=== PATIENT | female | born 2005 | race African-American/Black ===

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

== ENCOUNTER 2024-03-14 13:58 | Emergency (ER) | payer OTHER, SELFPAY ==
--- NOTE | ~2024-03-14 | XR_ITS ---
EXAMINATION: XR ankle LT min 3V DATE: 03/14/2024 14:31 INDICATION: Left ankle pain post injury TECHNIQUE: Anteroposterior, oblique, mortise, and lateral views of the left ankle were obtained. COMPARISON: None. FINDINGS: Alignment is normal. No fracture. Joint spaces are well maintained. No ankle joint effusion. The so ft tissues are unremarkable. IMPRESSION: 1. Normal left ankle radiographs. Reviewed, dictated and finalized at location B. BANDER
--- NOTE | ~2024-03-14 | XR_ITS ---
EXAMINATION: [id number] DATE: 03/14/2024 14:32 INDICATION: Left knee injury and pain. TECHNIQUE: 2 views of left knee were obtained. COMPARISON: None. FINDINGS: Bone alignment is normal. No fracture. Joint spaces are normal. No knee joint effusion. IMPRESSION: 1. Normal left knee. Reviewed, dictated and finalized at location A. IC OPINION SURVEY TAKER IMPRESSION: 1. Normal left knee.
--- NOTE | 2024-03-14 14:00 | ED.GENADULT ---
HPI - General Adult General Chief complaint: Extremity Injury, Lower Stated complaint: Left Leg Pain Time Seen by Provider: 03/14/24 14:08 Source: patient, RN notes reviewed and old records reviewed Mode of arrival: ambulatory Limitations: no limitations History of Present Illness HPI narrative: 18-year-old female presents to the [facility] with left leg pain. Patient reports last night that she injured her leg when she was playing around with brother and he landed in her left lower leg. Pain mostly in the ankle. Decreased range of motion of the ankle in the knee. No erythema, ecchymosis. No swelling noted. Related Data Home Medications Medication Instructions Recorded Confirmed norethindrone 1 mg-ethinyl 1 tablet PO DAILY 12/24/21 03/14/24 estradiol 20 mcg (21)-iron 75 mg (7) tablet (Blisovi Fe 05/20 (28)) albuterol 90 mcg-budesonide 80 2 inh inhalation DIRECTED 03/14/24 03/14/24 mcg/actuation HFA aerosol inhaler (Airsupra) albuterol sulfate 2.5 mg/3 mL 2.5 mg continuous nebulization 03/14/24 03/14/24 (0.083 %) solution for nebulization DIRECTED phentermine 15 mg capsule 15 mg PO DIRECTED 03/14/24 03/14/24 Allergies Allergy/AdvReac Type Severity Reaction Status Date / Time No Known Allergies Allergy Verified 03/14/24 14:01 Review of Systems Review of Systems: All systems reviewed & are unremarkable except as noted in HPI and below Constitutional: Constitutional: Reports no additional constitutional complaints ENT: Reports system reviewed and no additional complaints, except as documented Cardiovascular: Cardiovascular: Reports no additional cardiovascular complaints, Denies chest pain and Denies dyspnea Respiratory: Respiratory: Reports no additional respiratory complaints, Denies chest congestion, Denies cough and Denies dyspnea Gastrointestinal: Gastrointestinal: Reports no additional gastrointestinal complaints, Denies abdominal pain, Denies nausea and Denies vomiting Musculoskeletal: Musculoskeletal: Reports as per HPI and Reports arthralgias (Left knee, left ankle) Integumentary/Breasts: Skin/Breast: Reports system reviewed and no additional complaints, except as docu PMFSH Past Medical History Medical History Asthma Shoulder injury RT Surgical History Surgical History No significant past surgical history Family History Family History Father , [place] Acute myocardial infarction Mother Alive and well Social History Social History Smoking status: Never smoker Tobacco type: cigarettes Second hand tobacco smoke exposure: No Additional smoking assessment comments: Secondhand smoking exposure Alcohol intake: never Substance use: never Living arrangements: with family Occupation/Education: student Gender identity (if verbalized by the patient): Female Comments At the time of my signature, I reviewed and agree with the nursing past medical, surgical, social, and family history. There is no relevant family history pertinent to the patient complaint. Exam Const: General: cooperative, healthy appearing, comfortable, no acute distress, well developed, alert and well nourished Nutritional Appearance: well nourished and obese Orientation/consciousness: patient oriented x3 Limitations: no limitations HENMT: Head: normal to inspection Ears: hearing grossly normal bilaterally and external ears normal Face/Nose/Sinus: Normal external nose present, normal facial exam and face symmetric Face and sinus: normal facial exam and face symmetric Eyes: General: appearance normal, both eyes and all related structures Alignment and Position: alignment normal Periorbital: periorbital findings normal Neck: Neck: normal visual inspection, full ROM, no lymphadenopathy and no meningeal signs Chest: Chest palpation & inspection: normal inspection of the chest Resp: Effort & Inspection: normal respiratory effort and able to speak in complete sentences Cardio: Rate: regular rate Skin: General skin exam: normal color and no rashes or lesions noted Lesions: no lesions Rashes: no rashes Wounds: no wounds Neuro: General: patient oriented x3, tone normal, moves all extremities and no meningeal signs Cognition (Neuro): normal cognition Speech: normal speech Extrem: General: normal to inspection, full ROM and capillary refill normal Left lower extremity: knee Details: abnormal ROM Details: pain with active ROM Details: with extension and with flexion; no tenderness and no swelling, lower leg Details: normal to inspection and no edema; no erythema, no tenderness and no localized swelling and ankle Details: tenderness (Generalized) and abnormal ROM Details: pain with active ROM Details: with plantar flexion and with dorsiflexion; no swelling Psych: Appearance: grossly normal and well kempt Mental Status: mental status grossly normal Speech and movement: Normal speech and movement present and Clear speech present Affect: normal affect Attitude: cooperative Course Course Level of Care: Express Care Visit Vital Signs Vital signs: Vital Signs Temperature 97.7 F 03/14/24 14:08 Pulse Rate 95 03/14/24 14:08 Respiratory Rate 20 03/14/24 14:08 Blood Pressure 122/73 03/14/24 14:08 Pulse Oximetry 97 03/14/24 14:08 Oxygen Delivery Room Air 03/14/24 14:08 Temperature 97.7 F 03/14/24 14:08 Pulse Rate 95 03/14/24 14:08 Respiratory Rate 20 03/14/24 14:08 Blood Pressure 122/73 03/14/24 14:08 Pulse Oximetry 97 03/14/24 14:08 Oxygen Delivery Room Air 03/14/24 14:08 Reviewed Medical Decision Making MDM Narrative Medical decision making narrative: Patient sitting comfortably in exam room. Nontoxic, vitals stable. Patient in no acute distress Patient presents for knee and ankle discomfort after injury last night X-ray does not show any acute findings. Has pain with range of motion of the ankle. Pain only with bending of the knee. Unable to reproduce pain with palpation. Patient appropriate for outpatient treatment and follow-up, Carmine wrap was applied in clinic Discharge instructions reviewed with patient, as well as provided in writing per nursing staff. The instructions also include specific and strict return/GO TO THE ER as well as f/u information. All questions have been answered, and the patient deny any further questions with discharge and discharge plan. Some parts of this dictation were generated by voice recognition software and may contain typographical and/or grammatical inaccuracies. Differential Diagnosis Differential Diagnosis: Fracture, sprain, strain, MCL, ACL tears Medical Records Medical records reviewed: Yes I reviewed the external patient's medical records. Vital Signs Vital Signs: Vital Signs Temperature 97.7 F 03/14/24 14:08 Pulse Rate 95 03/14/24 14:08 Respiratory Rate 20 03/14/24 14:08 Blood Pressure 122/73 03/14/24 14:08 Pulse Oximetry 97 03/14/24 14:08 Oxygen Delivery Room Air 03/14/24 14:08 Temperature 97.7 F 03/14/24 14:08 Pulse Rate 95 03/14/24 14:08 Respiratory Rate 20 03/14/24 14:08 Blood Pressure 122/73 03/14/24 14:08 Pulse Oximetry 97 03/14/24 14:08 Oxygen Delivery Room Air 03/14/24 14:08 Reviewed Lab Data Lab results reviewed: Yes I reviewed the patient's lab results. Labs: Reviewed Imaging Data Radiologist's impression: EXAMINATION: XR ankle LT min 3V DATE: 03/14/2024 14:31 INDICATION: Left ankle pain post injury TECHNIQUE: Anteroposterior, oblique, mortise, and lateral views of the left ankle were obtained. COMPARISON: None. FINDINGS: Alignment is normal. No fracture. Joint spaces are well maintained. No ankle joint effusion. The soft tissues are unremarkable. IMPRESSION: 1. Normal left ankle radiographs. EXAMINATION: [id number] DATE: 03/14/2024 14:32 INDICATION: Left knee injury and pain. TECHNIQUE: 2 views of left knee were obtained. COMPARISON: None. FINDINGS: Bone alignment is normal. No fracture. Joint spaces are normal. No knee joint effusion. IMPRESSION: 1. Normal left knee. Critical Care Time Critical Care Time Critical Care Time: No Discharge Plan Discharge Clinical Impression: Ankle sprain and strain, Knee strain Patient Disposition: Home, Self-Care Condition: Stable Instructions: Antibiotic Form, Ankle Sprain (ED), Knee Sprain (ED) Additional Instructions: Your Xray did not show a fracture in either the knee or the ankle. Wear good supportive shoes at all times. Ice should be applied to help reduce swelling. It can be used for 20 to 30 minutes, every 2-3 hours while awake. Do not apply ice directly to your skin. ankle/knee braces or carmine-wraps will help support your injured knee/ankle. You can alternate ibuprofen 600mg and Tylenol 650mg every 4 hours as needed for pain Please schedule a follow-up visit with your personal physician for further evaluation and treatment within 2 weeks especially if symptoms persist. For new or worsening symptoms go directly to the emergency room Patient Language: Urdu Prescriptions: New ibuprofen 600 mg tablet 600 mg PO TID PRN (Reason: fever or pain) Qty: 30 0RF No Action norethindrone-e.estradiol-iron [Blisovi Fe 1/20 (28)] 1 mg-20 mcg (21)/75 mg (7) tablet 1 tablet PO DAILY albuterol sulfate 2.5 mg /3 mL (0.083 %) solution for nebulization 2.5 mg continuous nebulization DIRECTED phentermine 15 mg capsule 15 mg PO DIRECTED Airsupra 90-80 mcg/actuation HFA aerosol inhaler 2 inh INHALATION DIRECTED Follow-up/Referrals: Colton,MD Tank [Primary Care Provider] - 2 Weeks ([facility]) Stand Alone Forms: Work/School Release IP Time of Disposition: 15:08
[2024-03-14 14:08] VITALS: BP 122/73; PULSE 95; RESP 20; TEMP 36.5; O2SAT 97
== END 2024-03-14 15:15 | disposition home or self-care (01) ==
PROVIDERS: Emergency Provider Nurse Practitioner; PCP Pediatrics
DX: S93.402A Sprain of unspecified ligament of left ankle, initial encounter (principal); S96.912A Strain of unspecified muscle and tendon at ankle and foot level, left foot, initial encounter; S86.812A Strain of other muscle(s) and tendon(s) at lower leg level, left leg, initial encounter; Z79.899 Other long term (current) drug therapy; X58.XXXA Exposure to other specified factors, initial encounter
CPT/HCPCS: 73560; 73610; 99214; G0463